=== PATIENT | female | born 1980 | race Caucasian/White ===

== ENCOUNTER 2016-06-17 18:16 | Emergency (ER) | payer OTHER ==
[~2016-06-17 18:16] MED LIST: CEPH-91
== END 2016-06-17 19:33 | disposition left against medical advice (07) ==
LOC: ER 18:16
DX: M54.2 Cervicalgia (principal); M54.5 Low back pain; M25.519 Pain in unspecified shoulder; Z53.21 Procedure and treatment not carried out due to patient leaving prior to being seen by health care provider

== ENCOUNTER → 2016-09-07 | Emergency (ER) | payer OTHER | END | disposition left against medical advice (07) | LOC: ER 01:55 | DX: S61.401A Unspecified open wound of right hand, initial encounter (principal); Z53.21 Procedure and treatment not carried out due to patient leaving prior to being seen by health care provider; X58.XXXA Exposure to other specified factors, initial encounter; Y93.89 Activity, other specified; Y92.89 Other specified places as the place of occurrence of the external cause; Y99.8 Other external cause status ==

== ENCOUNTER 2016-11-06 19:47 | Emergency (ER) | payer SELFPAY ==
[~2016-11-06] VITALS: Ht 162.6 cm; Wt 59.0 kg
[2016-11-06 20:26] LABS: Basophils # (auto) 0 uL; Basophils % (auto) 0.6 % (0.0-2.0); CONDITION Y; Eosinophils # (auto) 0.3 uL; Eosinophils % (auto) 4.2 % (0.0-7.0); Hematocrit 42.2 % (36.0-46.0); Hemoglobin 14.3 g/dL (12.2-16.2); Lymphocytes % (auto) 26.6 % (10.0-50.0); Mean Corpuscular Hemoglobin 31.4 pg (28.0-32.0); Mean Corpuscular Hgb Conc. 33.8 g/dL (32.0-36.0); Mean Corpuscular Volume 92.8 fL (80.0-100.0); Mean Platelet Volume 8.6 fL (7.4-10.4); Monocytes # (auto) 0.4 uL; Monocytes % (auto) 5.3 % (0.0-12.0); Neutrophils # (auto) 4.8 uL; Neutrophils % (auto) 63.3 % (37.0-80.0); Platelet Count (auto) 365 10^3/uL (140-450); White Blood Cell 7.5 10^3/uL (4.4-10.8)
[2016-11-06 20:40] LABS: INR 0.93 (0.9-1.15); Partial Thromboplastin Time 24.2 sec (22.64-33.71); Prothrombin Time 10.1 sec (9.37-12.3)
[2016-11-06 21:02] LABS: Albumin 3.4 g/dL (3.4-5.0); Alkaline Phosphatase 81 U/L (45-117); Anion Gap 9 (5-15); Aspartate Aminotransferase 52 U/L (15-37); BUN/Creatinine Ratio 22.4; Bilirubin, Total 0.2 mg/dL (0.2-1.0); Blood Urea Nitrogen 11 mg/dL (7-18); Carbon Dioxide 25 mmol/L (21-32); Chloride 107 mmol/L (98-107); GFR African American 183 mL/min; GFR Non-African American 151 mL/min; Glucose 140 mg/dL (74-106); Magnesium 2.1 mg/dL (1.6-2.6); Potassium 3.2 mmol/L (3.5-5.1); Sodium 141 mmol/L (136-145); Total Protein 7.1 g/dL (6.4-8.2)
[2016-11-07 00:17] VITALS: BP 131/89
== END 2016-11-07 00:45 | disposition left against medical advice (07) ==
LOC: EDBD 19:47 → ER 19:56
DX: R07.9 Chest pain, unspecified (principal); Z53.21 Procedure and treatment not carried out due to patient leaving prior to being seen by health care provider
CPT/HCPCS: 36415; 71010; 80053; 83735; 84484; 84702; 85025; 85610; 85730; 93005

== ENCOUNTER 2016-11-07 21:10 | Observation (INO) | payer SELFPAY ==
[~2016-11-07] VITALS: Ht 162.6 cm; Wt 68.0 kg
[2016-11-07] MEDS ORDERED: SODIUM CHLORIDE 0.9% 1,000 ML IV ONE (23:00)
[2016-11-07 23:17] LABS: Basophils # (auto) 0.2 uL; Basophils % (auto) 2.8 % (0.0-2.0); Eosinophils # (auto) 0.4 uL; Eosinophils % (auto) 5.6 % (0.0-7.0); Hemoglobin 14.3 g/dL (12.2-16.2); Lymphocytes # (auto) 3.5 uL; Lymphocytes % (auto) 43.5 % (10.0-50.0); Mean Corpuscular Hemoglobin 30.4 pg (28.0-32.0); Mean Corpuscular Hgb Conc. 32.6 g/dL (32.0-36.0); Mean Corpuscular Volume 93.1 fL (80.0-100.0); Mean Platelet Volume 8.9 fL (7.4-10.4); Monocytes # (auto) 0.7 uL; Monocytes % (auto) 8.2 % (0.0-12.0); Neutrophils # (auto) 3.2 uL; Neutrophils % (auto) 39.9 % (37.0-80.0); Platelet Count (auto) 362 10^3/uL (140-450); Red Cell Distribution Width 14.1 % (11.6-16.0)
[2016-11-07 23:22] LABS: Acetaminophen < 2.0 ug/mL (10-30); Albumin 3.4 g/dL (3.4-5.0); Anion Gap 9 (5-15); Aspartate Aminotransferase 43 U/L (15-37); BUN/Creatinine Ratio 28.1; Blood Urea Nitrogen 9 mg/dL (7-18); Calcium 7.4 mg/dL (8.5-10.1); Carbon Dioxide 24 mmol/L (21-32); Chloride 112 mmol/L (98-107); GFR African American 299 mL/min; GFR Non-African American 247 mL/min; Glucose 87 mg/dL (74-106); Potassium 3.6 mmol/L (3.5-5.1); Salicylate 2.8 mg/dL (2.8-20.0); Sodium 145 mmol/L (136-145)
[2016-11-07 23:31] LABS: Alkaline Phosphatase 80 U/L (45-117); Bilirubin, Total < 0.1 mg/dL (0.2-1.0); Total Protein 7.1 g/dL (6.4-8.2)
[2016-11-07 23:35] LABS: Urine Bilirubin Negative (Negative); Urine Blood 2+ /uL (Negative); Urine Color Yellow (Yellow); Urine Glucose Normal (Normal); Urine Ketone Negative (Negative); Urine Mucus FEW (None Seen); Urine Nitrite POSITIVE (Negative); Urine RBC 4 /hpf (0 - 4); Urine Squamous Epithelial Cell FEW /hpf (<5); Urine Urobilinogen Normal (Negative)
[2016-11-08] MEDS ORDERED: THIAMINE INJ 100 MG, MULTIPLE VITAMIN 10 ML, FOLIC ACID 1 MG, MAGNESIUM SULF SDV 50% 8 ... IV ONE ×5 (00:45)
[2016-11-08] MEDS ORDERED: cefTRIAXone SOD 1,000 MG VL IV ONE (01:00)
[2016-11-08] MEDS ORDERED: MVI in SODIUM CHLORIDE 0.9% 1,010 ML ONE (01:09)
[2016-11-08] MEDS ORDERED: THIAMINE HCL 100 MG/ML 2ML VIAL ONE (01:10)
[2016-11-08] MEDS ORDERED: cefTRIAXone 1GM/50ML D5W 50 ML IV ONE ×2 (01:11→01:30)
[2016-11-08 04:52] VITALS: BP 103/57
[2016-11-08] MEDS ORDERED: THIAMINE INJ 100 MG, MULTIPLE VITAMIN 10 ML, FOLIC ACID 1 MG, MAGNESIUM SULF SDV 50% 8 ... IV SCH ×10 (12:00)
== END 2016-11-08 06:12 | disposition home or self-care (01) | DRG 897 ==
LOC: ER 21:26 → OVERFLOW 21:27 → ER 11-08 06:12
PROVIDERS: ADMIT Family Medicine; ATTEND Family Medicine
DX: F10.129 Alcohol abuse with intoxication, unspecified (principal); R56.9 Unspecified convulsions; N39.0 Urinary tract infection, site not specified; F15.10 Other stimulant abuse, uncomplicated
CPT/HCPCS: 36415; 80053; 80307; 80320; 80329; 81001; 84484; 85025; 93005; 96361; 96365; 96366; 96367; 96368; 99285; G0378; J0696; J3411; J3475

== ENCOUNTER 2018-01-19 21:11 | Emergency (ER) | payer SELFPAY ==
[~2018-01-19] VITALS: Ht 162.6 cm; Wt 45.4 kg
[2018-01-19 21:28] VITALS: BP 160/109
== END 2018-01-19 22:31 | disposition left against medical advice (07) ==
LOC: ER 21:11
DX: O26.891 Other specified pregnancy related conditions, first trimester (principal); Z3A.00 Weeks of gestation of pregnancy not specified

== ENCOUNTER 2018-04-01 13:58 | Emergency (ER) | payer SELFPAY ==
[~2018-04-01] VITALS: Ht 162.6 cm; Wt 54.4 kg
[2018-04-01 15:11] VITALS: BP 118/68
[2018-04-01] MEDS ORDERED: SODIUM CHLORIDE 0.9% 1,000 ML IV ONE ×2 (15:32)
[2018-04-01 15:45] LABS: Basophils # (auto) 0.1 uL; Basophils % (auto) 0.5 % (0.0-2.0); Eosinophils # (auto) 0.1 uL; Eosinophils % (auto) 0.6 % (0.0-7.0); Hematocrit 36.2 % (36.0-46.0); Hemoglobin 11.8 g/dL (12.2-16.2); Lymphocytes # (auto) 1.4 uL; Lymphocytes % (auto) 11.6 % (10.0-50.0); Mean Corpuscular Hgb Conc. 32.5 g/dL (32.0-36.0); Mean Corpuscular Volume 95.3 fL (80.0-100.0); Monocytes # (auto) 0.4 uL; Monocytes % (auto) 3.4 % (0.0-12.0); Neutrophils % (auto) 83.9 % (37.0-80.0); Platelet Count (auto) 304 10^3/uL (140-450); Red Cell Distribution Width 13.9 % (11.8-14.3); White Blood Cell 11.9 10^3/uL (4.4-10.8)
[2018-04-01] MEDS ORDERED: FOLIC ACID 1 MG TAB PO ONE (15:45)
[2018-04-01 16:04] LABS: BUN/Creatinine Ratio 33.3; Calcium 7.5 mg/dL (8.5-10.1); Potassium 3.6 mmol/L (3.5-5.1)
[2018-04-01 16:05] LABS: Bilirubin, Total 0.1 mg/dL (0.2-1.0); Total Protein 6.8 g/dL (6.4-8.2)
== END 2018-04-01 17:34 | disposition home or self-care (01) ==
LOC: EDBD 13:58 → ER 14:03
DX: O26.891 Other specified pregnancy related conditions, first trimester (principal); E86.0 Dehydration; M79.632 Pain in left forearm; Z3A.01 Less than 8 weeks gestation of pregnancy; W51.XXXA Accidental striking against or bumped into by another person, initial encounter; Y93.89 Activity, other specified; Y92.89 Other specified places as the place of occurrence of the external cause; Y99.8 Other external cause status
CPT/HCPCS: 29125; 36415; 80053; 80320; 84702; 85025; 96360; 99283; J7030

== ENCOUNTER 2019-08-14 12:21 | Emergency (ER) | payer MEDICAID, OTHER ==
[~2019-08-14] VITALS: Ht 162.6 cm; Wt 54.4 kg
[2019-08-14 13:14] LABS: Basophils # (auto) 0.1 10 ^3/uL (0-0.2); Eosinophils # (auto) 0.3 10 ^3/uL (0-0.8); Eosinophils % (auto) 5.4 % (0.0-7.0); Hematocrit 37.6 % (36.0-46.0); Hemoglobin 12.3 g/dL (12.2-16.2); Lymphocytes # (auto) 1.4 10 ^3/uL (0.4-5.4); Lymphocytes % (auto) 21.6 % (10.0-50.0); Mean Corpuscular Hgb Conc. 32.7 g/dL (32.0-36.0); Mean Corpuscular Volume 91.6 fL (80.0-100.0); Monocytes # (auto) 0.5 10 ^3/uL (0-1.3); Monocytes % (auto) 8.2 % (0.0-12.0); Neutrophils # (auto) 4.1 10 ^3/uL (1.6-8.6); Neutrophils % (auto) 63.8 % (37.0-80.0); Platelet Count (auto) 377 10^3/uL (140-450); Red Cell Distribution Width 19.8 % (11.8-14.3); White Blood Cell 6.4 10^3/uL (4.4-10.8)
[2019-08-14 13:33] LABS: Albumin 3.3 g/dL (3.4-5.0); Anion Gap 6 (5-15); Blood Urea Nitrogen 14 mg/dL (7-18); Calcium 8.5 mg/dL (8.5-10.1); Carbon Dioxide 26 mmol/L (21-32); Chloride 107 mmol/L (98-107); Glucose 96 mg/dL (74-106); Potassium 3.5 mmol/L (3.5-5.1); Sodium 139 mmol/L (136-145)
[2019-08-14] MEDS ORDERED: SODIUM CHLORIDE 0.9% 1,000 ML IVB ONE (13:36)
[2019-08-14 13:40] LABS: Alanine Aminotransferase 43 U/L (13-56); Alkaline Phosphatase 97 U/L (45-117); Aspartate Aminotransferase 61 U/L (15-37); BUN/Creatinine Ratio 31.1; Bilirubin, Total 0.5 mg/dL (0.2-1.0); GFR African American 198 mL/min; GFR Non-African American 164 mL/min; Total Protein 7.1 g/dL (6.4-8.2)
[2019-08-14 14:47] LABS: Blood Alcohol < 3.0 mg/dL (0-5); Magnesium 1.8 mg/dL (1.6-2.6)
[2019-08-14 15:43] LABS: Amphetamine Screen, Urine POSITIVE (NEGATIVE); Barbiturate Scree,Urine NEGATIVE (NEGATIVE); Benzodiazephine Screen, Urine NEGATIVE (NEGATIVE); Cannabinoid Screen, Urine POSITIVE (NEGATIVE); Cocaine Screen, Urine NEGATIVE (NEGATIVE); Opiate Scree,Urine NEGATIVE (NEGATIVE)
[2019-08-14 15:51] LABS: Phencyclidine Screen, Urine NEGATIVE (NEGATIVE)
[2019-08-14 16:04] LABS: Urine Bacteria MANY /hpf (None Seen); Urine Blood Negative /uL (Negative); Urine Mucus FEW (None Seen); Urine Specific Gravity 1.023 (1.001-1.035); Urine WBC 5 /hpf (0 - 5)
[2019-08-14] MEDS ORDERED: cefTRIAXone 1GM/50ML D5W 50 ML IV ONE (16:45)
[2019-08-14] MEDS ORDERED: THIAMINE HCL 100 MG TAB PO ONE (16:45)
[2019-08-14 17:00] VITALS: BP 143/95
== END 2019-08-14 17:41 | disposition home or self-care (01) ==
LOC: ER 12:21 → EDBD 12:21 → ER 17:41
DX: R56.9 Unspecified convulsions (principal); F15.10 Other stimulant abuse, uncomplicated; N39.0 Urinary tract infection, site not specified; F10.20 Alcohol dependence, uncomplicated; F17.210 Nicotine dependence, cigarettes, uncomplicated; F12.10 Cannabis abuse, uncomplicated; Z59.0 Homelessness; Y90.9 Presence of alcohol in blood, level not specified
CPT/HCPCS: 36415; 70450; 71045; 80053; 80307; 80320; 81001; 83735; 84484; 84702; 85025; 96365; 99285; J0696

== ENCOUNTER 2020-03-14 03:12 | Emergency (ER) | payer SELFPAY ==
[~2020-03-14] VITALS: Ht 165.1 cm; Wt 63.5 kg
[2020-03-14] MEDS ORDERED: LORazepam 2MG/ML-1ML VIAL IV ONE (03:15)
[2020-03-14] MEDS ORDERED: SODIUM CHLORIDE 0.9% 2,000 ML IV ONE (03:15)
[2020-03-14 03:52] LABS: Basophils # (auto) 0 10 ^3/uL (0-0.2); Basophils % (auto) 0.7 % (0.0-2.0); Eosinophils # (auto) 0.1 10 ^3/uL (0-0.8); Eosinophils % (auto) 1.7 % (0.0-7.0); Hematocrit 38.9 % (36.0-46.0); Hemoglobin 12.9 g/dL (12.2-16.2); Lymphocytes # (auto) 2.7 10 ^3/uL (0.4-5.4); Lymphocytes % (auto) 38.7 % (10.0-50.0); Mean Corpuscular Hemoglobin 32.1 pg (28.0-32.0); Mean Corpuscular Hgb Conc. 33.2 g/dL (32.0-36.0); Mean Corpuscular Volume 96.9 fL (80.0-100.0); Monocytes % (auto) 14.4 % (0.0-12.0); Neutrophils # (auto) 3.1 10 ^3/uL (1.6-8.6); Neutrophils % (auto) 44.5 % (37.0-80.0); Nucleated Red Blood Cells % 0.1 %; Platelet Count (auto) 220 10^3/uL (140-450); Red Blood Cells 4.02 10^6/uL (4.0-5.20); Red Cell Distribution Width 16.3 % (11.8-14.3); White Blood Cell 6.9 10^3/uL (4.4-10.8)
[2020-03-14] MEDS ORDERED: SODIUM CHLORIDE 0.9% 1,000 ML IV ONE (04:00)
[2020-03-14 04:15] LABS: Lactic Acid w/Reflex 4.8 mmol/L (0.4-2.0)
[2020-03-14 04:17] LABS: Chloride 96 mmol/L (98-107); Sodium 131 mmol/L (136-145)
[2020-03-14 04:20] LABS: INR 0.97 (0.9-1.15); Partial Thromboplastin Time 26.9 sec (23.0-31.2)
[2020-03-14 04:24] LABS: Potassium 2.5 mmol/L (3.5-5.1)
[2020-03-14 04:27] LABS: Alanine Aminotransferase 126 U/L (13-56); Albumin 3.1 g/dL (3.4-5.0); Alkaline Phosphatase 120 U/L (45-117); Anion Gap 13 (5-15); Aspartate Aminotransferase 179 U/L (15-37); BUN/Creatinine Ratio 28.6; Bilirubin, Total 0.5 mg/dL (0.2-1.0); Blood Urea Nitrogen 24 mg/dL (7-18); Calcium 8.1 mg/dL (8.5-10.1); Carbon Dioxide 22 mmol/L (21-32); GFR African American 96 mL/min; GFR Non-African American 79 mL/min; Glucose 103 mg/dL (74-106); Magnesium 1.2 mg/dL (1.6-2.6); Total Protein 6.8 g/dL (6.4-8.2)
[2020-03-14 09:45] VITALS: BP 119/76
== END 2020-03-14 10:37 | disposition home or self-care (01) ==
LOC: EDUNIT# 03:12 → ER 03:12 → EDBD 03:12 → ER 10:37
DX: F15.121 Other stimulant abuse with intoxication delirium (principal)
CPT/HCPCS: 36415; 70450; 71045; 80053; 80320; 83605; 83735; 84484; 85025; 85379; 85610; 85730; 87040; 96361; 96374; 99285; J2060; J7030

== ENCOUNTER 2020-06-23 23:00 | Emergency (ER) | payer SELFPAY ==
[~2020-06-23] VITALS: Ht 157.5 cm; Wt 59.0 kg
[2020-06-23 23:11] VITALS: BP 132/74
== END 2020-06-23 23:19 | disposition left against medical advice (07) ==
LOC: EDUNIT# 23:00 → EDBD 23:00 → ER 23:04
DX: R07.89 Other chest pain (principal); Z53.21 Procedure and treatment not carried out due to patient leaving prior to being seen by health care provider
CPT/HCPCS: 93005

== ENCOUNTER 2020-12-02 04:19 | Emergency (ER) | payer MEDICAID, OTHER ==
[~2020-12-02] VITALS: Ht 162.6 cm; Wt 56.7 kg
[2020-12-02 05:17] LABS: Basophils # (auto) 0.1 10 ^3/uL (0-0.2); Eosinophils # (auto) 0.2 10 ^3/uL (0-0.8); Hemoglobin 14.8 g/dL (12.2-16.2); Monocytes # (auto) 0.6 10 ^3/uL (0-1.3); Neutrophils # (auto) 5.3 10 ^3/uL (1.6-8.6); Nucleated Red Blood Cells % 0.1 %
[2020-12-02 05:19] LABS: Basophils % (auto) 1.3 % (0.0-2.0); Hematocrit 43.7 % (36.0-46.0); Lymphocytes % (auto) 24.5 % (10.0-50.0); Mean Corpuscular Hemoglobin 34.5 pg (28.0-32.0); Mean Corpuscular Hgb Conc. 33.8 g/dL (32.0-36.0); Mean Corpuscular Volume 102.2 fL (80.0-100.0); Monocytes % (auto) 7.1 % (0.0-12.0); Neutrophils % (auto) 65.1 % (37.0-80.0); Red Blood Cells 4.28 10^6/uL (4.0-5.20); Red Cell Distribution Width 15.5 % (11.8-14.3); White Blood Cell 8.2 10^3/uL (4.4-10.8)
[2020-12-02 05:40] LABS: Alanine Aminotransferase 81 U/L (13-56); Albumin 3.6 g/dL (3.4-5.0); Anion Gap 9 (5-15); Aspartate Aminotransferase 147 U/L (15-37); BUN/Creatinine Ratio 17.7; Blood Urea Nitrogen 11 mg/dL (7-18); Calcium 8.9 mg/dL (8.5-10.1); Carbon Dioxide 27 mmol/L (21-32); Chloride 103 mmol/L (98-107); GFR African American 136 mL/min; GFR Non-African American 113 mL/min; Glucose 90 mg/dL (74-106); Potassium 3.3 mmol/L (3.5-5.1); Sodium 139 mmol/L (136-145)
[2020-12-02 05:44] LABS: Alkaline Phosphatase 136 U/L (45-117); Bilirubin, Total 0.3 mg/dL (0.2-1.0); Total Protein 7.6 g/dL (6.4-8.2)
[2020-12-02] MEDS ORDERED: cloNIDine HCL 0.1 MG TAB PO ONE (06:45)
[2020-12-02] MEDS ORDERED: POTASSIUM EFFERVESENT TAB 25 MEQ PO ONE (06:45)
[2020-12-02 10:17] VITALS: BP 128/81
== END 2020-12-02 10:18 | disposition home or self-care (01) ==
LOC: ER 04:19
DX: I16.0 Hypertensive urgency (principal); R07.89 Other chest pain; E87.6 Hypokalemia; I11.0 Hypertensive heart disease with heart failure; I50.9 Heart failure, unspecified; F17.210 Nicotine dependence, cigarettes, uncomplicated; Z59.0 Homelessness; Z79.899 Other long term (current) drug therapy
CPT/HCPCS: 36415; 71045; 80053; 83880; 84484; 85025; 93005

== ENCOUNTER 2021-02-14 08:16 | Emergency (ER) | payer MEDICAID, OTHER ==
[~2021-02-14] VITALS: Ht 162.6 cm; Wt 54.4 kg
[2021-02-14] MEDS ORDERED: SODIUM CHLORIDE 0.9% 1,000 ML IV ONE ×2 (09:15)
[2021-02-14] MEDS ORDERED: ONDANSETRON HCL 4 MG/2 ML VIAL IV ONE (09:15)
[2021-02-14 09:44] LABS: Urine Bacteria NONE SEEN /hpf (None Seen); Urine Blood Negative /uL (Negative); Urine Mucus FEW (None Seen); Urine Specific Gravity 1.025 (1.001-1.035); Urine WBC 85 /hpf (0 - 5)
[2021-02-14 09:53] LABS: Amphetamine Screen, Urine POSITIVE (NEGATIVE); Barbiturate Scree,Urine NEGATIVE (NEGATIVE); Benzodiazephine Screen, Urine NEGATIVE (NEGATIVE); Cannabinoid Screen, Urine POSITIVE (NEGATIVE); Cocaine Screen, Urine NEGATIVE (NEGATIVE); Phencyclidine Screen, Urine NEGATIVE (NEGATIVE)
[2021-02-14 09:59] LABS: Opiate Scree,Urine NEGATIVE (NEGATIVE)
[2021-02-14 10:30] LABS: Basophils # (auto) 0 10 ^3/uL (0-0.2); Basophils % (auto) 0.4 % (0.0-2.0); Eosinophils # (auto) 0.1 10 ^3/uL (0-0.8); Eosinophils % (auto) 1.4 % (0.0-7.0); Nucleated Red Blood Cells % 0.1 %; Red Cell Distribution Width 16.4 % (11.8-14.3)
[2021-02-14 10:36] LABS: Hematocrit 41.9 % (36.0-46.0); Hemoglobin 13.8 g/dL (12.2-16.2); Lymphocytes # (auto) 1.1 10 ^3/uL (0.4-5.4); Lymphocytes % (auto) 11.7 % (10.0-50.0); Mean Corpuscular Hemoglobin 35.3 pg (28.0-32.0); Mean Corpuscular Volume 106.9 fL (80.0-100.0); Monocytes # (auto) 0.6 10 ^3/uL (0-1.3); Neutrophils # (auto) 7.5 10 ^3/uL (1.6-8.6); Neutrophils % (auto) 80.5 % (37.0-80.0); Red Blood Cells 3.92 10^6/uL (4.0-5.20); White Blood Cell 9.3 10^3/uL (4.4-10.8)
[2021-02-14 10:50] LABS: Albumin 3.2 g/dL (3.4-5.0); BUN/Creatinine Ratio 22.2; Calcium 7.7 mg/dL (8.5-10.1); Potassium 3.2 mmol/L (3.5-5.1)
[2021-02-14 10:53] LABS: Bilirubin, Total 0.3 mg/dL (0.2-1.0); Total Protein 6.8 g/dL (6.4-8.2)
[2021-02-14 12:55] VITALS: BP 145/97
== END 2021-02-14 13:11 | disposition home or self-care (01) ==
LOC: ER 08:16
DX: R10.84 Generalized abdominal pain (principal); R11.2 Nausea with vomiting, unspecified; F10.129 Alcohol abuse with intoxication, unspecified; I11.0 Hypertensive heart disease with heart failure; I50.9 Heart failure, unspecified; F17.210 Nicotine dependence, cigarettes, uncomplicated; F12.10 Cannabis abuse, uncomplicated; F15.10 Other stimulant abuse, uncomplicated
CPT/HCPCS: 36415; 74176; 80053; 80307; 80320; 81001; 84484; 85025; 93005; 96361; 96374; 99285; J2405; J7030

== ENCOUNTER 2021-10-18 20:26 | Emergency (ER) | payer SELFPAY ==
[~2021-10-18] VITALS: Ht 165.1 cm; Wt 52.3 kg
[2021-10-18] MEDS ORDERED: IOHEXOL 350 MG/ML 100ML IJ ONE (21:10)
[2021-10-19 04:32] LABS: Basophils # (auto) 0.1 10 ^3/uL (0-0.2); Eosinophils # (auto) 0.2 10 ^3/uL (0-0.8); Eosinophils % (auto) 2.4 % (0.0-7.0); Hematocrit 45.9 % (36.0-46.0); Hemoglobin 14.8 g/dL (12.2-16.2); Lymphocytes # (auto) 3.7 10 ^3/uL (0.4-5.4); Lymphocytes % (auto) 41.7 % (10.0-50.0); Mean Corpuscular Hemoglobin 31.8 pg (28.0-32.0); Mean Corpuscular Hgb Conc. 32.2 g/dL (32.0-36.0); Mean Corpuscular Volume 98.8 fL (80.0-100.0); Monocytes # (auto) 0.6 10 ^3/uL (0-1.3); Monocytes % (auto) 6.9 % (0.0-12.0); Neutrophils # (auto) 4.3 10 ^3/uL (1.6-8.6); Nucleated Red Blood Cells % 0.1 %; Red Blood Cells 4.65 10^6/uL (4.0-5.20); Red Cell Distribution Width 15.4 % (11.8-14.3)
[2021-10-19 04:46] LABS: INR 0.97 (0.9-1.15); Partial Thromboplastin Time 28.4 sec (24.6-33.4)
[2021-10-19 04:50] LABS: Albumin 3.5 g/dL (3.4-5.0); Potassium 3.2 mmol/L (3.5-5.1)
[2021-10-19 04:59] LABS: Bilirubin, Total 0.1 mg/dL (0.2-1.0); Total Protein 7.6 g/dL (6.4-8.2)
[2021-10-19] MEDS ORDERED: CALCIUM ACETATE 667 MG CAP PO ONE ×2 (05:30→08:45)
[2021-10-19] MEDS ORDERED: POTASSIUM EFFERVESENT TAB 25 MEQ PO ONE ×2 (05:30→08:45)
[2021-10-19 07:09] LABS: Amphetamine Screen, Urine POSITIVE (NEGATIVE); Barbiturate Scree,Urine NEGATIVE (NEGATIVE); Benzodiazephine Screen, Urine NEGATIVE (NEGATIVE); Cannabinoid Screen, Urine POSITIVE (NEGATIVE); Cocaine Screen, Urine NEGATIVE (NEGATIVE); Opiate Scree,Urine NEGATIVE (NEGATIVE); Phencyclidine Screen, Urine NEGATIVE (NEGATIVE)
[2021-10-19 07:13] LABS: Urine Bacteria NONE SEEN /hpf (None Seen); Urine Blood Negative /uL (Negative); Urine Mucus FEW (None Seen); Urine WBC 60 /hpf (0 - 5)
[2021-10-19 07:53] LABS: Urine Specific Gravity > 1.050 (1.001-1.035)
[2021-10-19] MEDS ORDERED: PRED20TA2 PO (08:26)
[2021-10-19] MEDS ORDERED: PANT40TA2 PO (08:26)
[2021-10-19 10:02] VITALS: BP 109/74
== END 2021-10-19 10:34 | disposition home or self-care (01) ==
LOC: ER 20:26
DX: G51.0 Bell's palsy (principal); E87.6 Hypokalemia; F17.210 Nicotine dependence, cigarettes, uncomplicated; R10.2 Pelvic and perineal pain; F12.10 Cannabis abuse, uncomplicated; F15.10 Other stimulant abuse, uncomplicated; I11.0 Hypertensive heart disease with heart failure; I50.9 Heart failure, unspecified; Z59.00 Homelessness unspecified
CPT/HCPCS: 36415; 70450; 70496; 70498; 71045; 80053; 80307; 81001; 83735; 83880; 84702; 85025; 85610; 85730; 86850; 86900; 86901; 93005; 99285; Q9967

== ENCOUNTER 2021-11-05 23:31 | Emergency (ER) | payer SELFPAY ==
[~2021-11-05] VITALS: Ht 162.6 cm; Wt 115.0 kg
[2021-11-05 23:31] VITALS: BP 140/96
[~2021-11-05 23:31] MED LIST changes: +PANT40TA2 PO; +PRED20TA2 PO
== END 2021-11-06 04:29 | disposition left against medical advice (07) ==
LOC: ER 23:31
DX: G51.0 Bell's palsy (principal); Z76.0 Encounter for issue of repeat prescription; Z53.21 Procedure and treatment not carried out due to patient leaving prior to being seen by health care provider

== ENCOUNTER 2021-11-14 18:20 | Emergency (ER) | payer SELFPAY ==
[~2021-11-14] VITALS: Ht 162.6 cm; Wt 52.0 kg
[2021-11-14 18:29] VITALS: BP 138/88
== END 2021-11-14 21:28 | disposition left against medical advice (07) ==
LOC: ER 18:22
DX: Z76.0 Encounter for issue of repeat prescription (principal); Z53.21 Procedure and treatment not carried out due to patient leaving prior to being seen by health care provider

== ENCOUNTER 2021-11-15 18:42 | Emergency (ER) | payer SELFPAY ==
[~2021-11-15] VITALS: Ht 162.6 cm; Wt 47.0 kg
[2021-11-15 19:08] VITALS: BP 137/90
== END 2021-11-16 04:00 | disposition left against medical advice (07) ==
LOC: ER 18:45
DX: R20.0 Anesthesia of skin (principal); R53.1 Weakness; Z53.21 Procedure and treatment not carried out due to patient leaving prior to being seen by health care provider
CPT/HCPCS: 70450; 93005

== ENCOUNTER 2021-11-16 05:58 | Emergency (ER) | payer SELFPAY ==
[~2021-11-16] VITALS: Ht 165.1 cm; Wt 53.5 kg
[2021-11-16] MEDS ORDERED: ASPirin 325 MG TAB PO ONE (07:45)
[2021-11-16 15:51] VITALS: BP 118/93
== END 2021-11-16 15:51 | disposition home or self-care (01) ==
LOC: ER 05:58
DX: I11.0 Hypertensive heart disease with heart failure (principal); I50.9 Heart failure, unspecified; F41.9 Anxiety disorder, unspecified; F17.210 Nicotine dependence, cigarettes, uncomplicated; F12.10 Cannabis abuse, uncomplicated; F15.10 Other stimulant abuse, uncomplicated; Z59.00 Homelessness unspecified
CPT/HCPCS: 70450

== ENCOUNTER 2021-11-28 21:35 | Emergency (ER) | payer SELFPAY ==
[~2021-11-28] VITALS: Ht 152.4 cm; Wt 55.0 kg
[2021-11-28 21:35] VITALS: BP 149/100
== END 2021-11-28 23:08 | disposition left against medical advice (07) ==
LOC: EDBD 21:35 → ER 21:35
DX: R51.9 Headache, unspecified (principal); F10.10 Alcohol abuse, uncomplicated; Z53.21 Procedure and treatment not carried out due to patient leaving prior to being seen by health care provider

== ENCOUNTER 2022-11-11 09:30 | Emergency (ER) | payer MEDICAID ==
[~2022-11-11] VITALS: Ht 162.6 cm; Wt 50.9 kg
[2022-11-11 09:34] VITALS: BP 126/92; RESP 18; O2SAT 97
[2022-11-11 09:40] VITALS: PULSE 109
[2022-11-11 09:59] LABS: Basophils # (auto) 0.1 10 ^3/uL (0-0.2); Basophils % (auto) 1.3 % (0.0-2.0); Eosinophils # (auto) 0.4 10 ^3/uL (0-0.8); Eosinophils % (auto) 4.7 % (0.0-7.0); Hemoglobin 13.6 g/dL (12.2-16.2); Lymphocytes # (auto) 3.1 10 ^3/uL (0.4-5.4); Lymphocytes % (auto) 38.3 % (10.0-50.0); Mean Corpuscular Hemoglobin 31.4 pg (28.0-32.0); Mean Corpuscular Hgb Conc. 33.1 g/dL (32.0-36.0); Mean Corpuscular Volume 94.6 fL (80.0-100.0); Monocytes # (auto) 0.6 10 ^3/uL (0-1.3); Monocytes % (auto) 7.3 % (0.0-12.0); Neutrophils # (auto) 3.9 10 ^3/uL (1.6-8.6); Neutrophils % (auto) 48.4 % (37.0-80.0); Red Blood Cells 4.33 10^6/uL (4.0-5.20); Red Cell Distribution Width 16.1 % (11.8-14.3); White Blood Cell 8.1 10^3/uL (4.4-10.8)
[2022-11-11 10:12] LABS: Alanine Aminotransferase 36 U/L (7-40); Albumin 4.6 g/dL (3.2-4.8); Alkaline Phosphatase 127 U/L (46-116); Anion Gap 9.2 (5-15); Aspartate Aminotransferase 70 U/L (13-40); BUN/Creatinine Ratio 26.9 (10.0-20.0); Blood Urea Nitrogen 14 mg/dL (9-23); Carbon Dioxide 23.8 mmol/L (20-30); Chloride 106 mmol/L (98-107); Glucose 85 mg/dL (74-106); Magnesium 1.5 mg/dL (1.6-2.6); Potassium 3.7 mmol/L (3.5-5.1); Sodium 139 mmol/L (136-145)
[2022-11-11 10:13] LABS: Bilirubin, Total 0.5 mg/dL (0.2-1.0); Total Protein 7.6 g/dL (5.7-8.2)
[2022-11-11 10:49] LABS: Urine Bacteria FEW /hpf (None Seen); Urine Blood Negative /uL (Negative); Urine Clarity HAZY (Clear); Urine Color Yellow (Yellow); Urine Mucus FEW (None Seen); Urine Protein, UAD 1+ (Negative); Urine Specific Gravity 1.027 (1.001-1.035); Urine Urobilinogen Normal (Negative); Urine WBC 7 /hpf (0 - 5)
[2022-11-11 10:53] LABS: INR 1.02 (0.9-1.15); Prothrombin Time 10.7 sec (9.3-11.8)
[2022-11-11 10:54] LABS: Amphetamine Screen, Urine Pos (NEGATIVE); Barbiturate Scree,Urine Neg (NEGATIVE); Benzodiazephine Screen, Urine Neg (NEGATIVE); Cannabinoid Screen, Urine Pos (NEGATIVE); Cocaine Screen, Urine Neg (NEGATIVE); Opiate Scree,Urine Neg (NEGATIVE); Phencyclidine Screen, Urine Neg (NEGATIVE)
== END 2022-11-11 10:53 | disposition left against medical advice (07) ==
LOC: ER 09:30
DX: R07.89 Other chest pain (principal); N39.0 Urinary tract infection, site not specified; F15.10 Other stimulant abuse, uncomplicated; R06.02 Shortness of breath; Z32.02 Encounter for pregnancy test, result negative; Z79.899 Other long term (current) drug therapy
CPT/HCPCS: 36415; 80053; 80307; 81001; 81025; 83735; 83880; 84484; 85025; 85610; 85730; 93005

== ENCOUNTER 2022-12-08 16:27 | Emergency (ER) | payer MEDICAID ==
[~2022-12-08] VITALS: Ht 162.6 cm; Wt 51.4 kg
[2022-12-08] MEDS ORDERED: KETOROLAC TROMETH 60MG/2ML VIAL IM ONE (17:15)
[2022-12-08 17:48] LABS: Basophils # (auto) 0.1 10 ^3/uL (0-0.2); Basophils % (auto) 0.8 % (0.0-2.0); Eosinophils # (auto) 0.4 10 ^3/uL (0-0.8); Eosinophils % (auto) 2.9 % (0.0-7.0); Hematocrit 36.9 % (36.0-46.0); Hemoglobin 12.4 g/dL (12.2-16.2); Lymphocytes % (auto) 16.5 % (10.0-50.0); Mean Corpuscular Hgb Conc. 33.5 g/dL (32.0-36.0); Mean Corpuscular Volume 95.5 fL (80.0-100.0); Monocytes # (auto) 1.2 10 ^3/uL (0-1.3); Monocytes % (auto) 10.1 % (0.0-12.0); Neutrophils # (auto) 8.4 10 ^3/uL (1.6-8.6); Neutrophils % (auto) 69.7 % (37.0-80.0); Red Blood Cells 3.87 10^6/uL (4.0-5.20); Red Cell Distribution Width 16.7 % (11.8-14.3)
[2022-12-08 17:51] VITALS: BP 109/79; PULSE 100; RESP 16; TEMP 98; O2SAT 95
[2022-12-08 18:13] LABS: Alanine Aminotransferase 17 U/L (7-40); Albumin 4.5 g/dL (3.2-4.8); Alkaline Phosphatase 119 U/L (46-116); Anion Gap 6 (5-15); Aspartate Aminotransferase 28 U/L (13-40); Bilirubin, Total < 0.2 mg/dL (0.2-1.0); Blood Urea Nitrogen 6 mg/dL (9-23); Calcium 8.9 mg/dL (8.7-10.4); Carbon Dioxide 30 mmol/L (20-30); Chloride 99 mmol/L (98-107); Glucose 88 mg/dL (74-106); Lipase 39 U/L (12-53); Potassium 3.2 mmol/L (3.5-5.1); Sodium 135 mmol/L (136-145); Total Protein 7.4 g/dL (5.7-8.2)
[2022-12-08 18:18] LABS: Amphetamine Screen, Urine Pos (NEGATIVE); Barbiturate Scree,Urine Neg (NEGATIVE); Benzodiazephine Screen, Urine Neg (NEGATIVE); Cannabinoid Screen, Urine Pos (NEGATIVE); Cocaine Screen, Urine Neg (NEGATIVE); Opiate Scree,Urine Neg (NEGATIVE); Phencyclidine Screen, Urine Neg (NEGATIVE)
[2022-12-08 18:42] LABS: Urine Bacteria NONE SEEN /hpf (None Seen); Urine Blood TRACE /uL (Negative); Urine Clarity CLOUDY (Clear); Urine Color Yellow (Yellow); Urine Mucus FEW (None Seen); Urine Protein, UAD 2+ (Negative); Urine WBC 284 /hpf (0 - 5); Urine WBC Clumps PRESENT /hpf (None Seen)
[2022-12-08] MEDS ORDERED: LEVO750T8 PO (20:12)
[2022-12-08] MEDS ORDERED: IBUP-1454 PO (20:12)
[2022-12-08] MEDS ORDERED: levoFLOXacin 250 MG TAB PO ONE (20:15)
[2022-12-08] MEDS ORDERED: cefTRIAXone SOD 1,000 MG VL IM ONE (20:15)
== END 2022-12-08 20:25 | disposition home or self-care (01) ==
LOC: ER 16:27
DX: N12 Tubulo-interstitial nephritis, not specified as acute or chronic (principal); I11.0 Hypertensive heart disease with heart failure; I50.9 Heart failure, unspecified; F17.210 Nicotine dependence, cigarettes, uncomplicated; Z59.00 Homelessness unspecified; Z79.899 Other long term (current) drug therapy
CPT/HCPCS: 36415; 80053; 80307; 81001; 81025; 83690; 83880; 84484; 85025; 93005; 96372; 99284; J0696; J1885

== ENCOUNTER 2022-12-10 10:58 | Emergency (ER) | payer MEDICAID ==
[~2022-12-10] VITALS: Ht 162.6 cm; Wt 51.0 kg
[~2022-12-10 10:58] MED LIST changes: +IBUP-1454 PO; +LEVO750T8 PO
[2022-12-10 11:19] VITALS: BP 129/92; PULSE 103; RESP 18; O2SAT 95
[2022-12-10 11:27] LABS: Basophils # (auto) 0.1 10 ^3/uL (0-0.2); Eosinophils # (auto) 0.4 10 ^3/uL (0-0.8); Hemoglobin 12.3 g/dL (12.2-16.2); Mean Corpuscular Hgb Conc. 33.9 g/dL (32.0-36.0); Monocytes # (auto) 0.6 10 ^3/uL (0-1.3); White Blood Cell 7.8 10^3/uL (4.4-10.8)
[2022-12-10 11:29] LABS: Basophils % (auto) 1.1 % (0.0-2.0); Eosinophils % (auto) 4.5 % (0.0-7.0); Hematocrit 36.3 % (36.0-46.0); Lymphocytes # (auto) 2.5 10 ^3/uL (0.4-5.4); Lymphocytes % (auto) 31.9 % (10.0-50.0); Mean Corpuscular Hemoglobin 32.4 pg (28.0-32.0); Mean Corpuscular Volume 95.5 fL (80.0-100.0); Monocytes % (auto) 8.2 % (0.0-12.0); Neutrophils # (auto) 4.2 10 ^3/uL (1.6-8.6); Neutrophils % (auto) 54.3 % (37.0-80.0); Red Cell Distribution Width 16.9 % (11.8-14.3)
[2022-12-10 11:46] LABS: Alanine Aminotransferase 22 U/L (7-40); Albumin 3.9 g/dL (3.2-4.8); Alkaline Phosphatase 124 U/L (46-116); Anion Gap 4 (5-15); Aspartate Aminotransferase 32 U/L (13-40); Bilirubin, Total < 0.2 mg/dL (0.2-1.0); Blood Urea Nitrogen 8 mg/dL (9-23); Calcium 8.6 mg/dL (8.7-10.4); Carbon Dioxide 30 mmol/L (20-30); Chloride 105 mmol/L (98-107); Glucose 89 mg/dL (74-106); Potassium 3.6 mmol/L (3.5-5.1); Sodium 139 mmol/L (136-145)
[2022-12-10 12:34] LABS: Urine Bacteria FEW /hpf (None Seen); Urine Blood Negative /uL (Negative); Urine Clarity HAZY (Clear); Urine Color Yellow (Yellow); Urine Mucus FEW (None Seen); Urine Protein, UAD 1+ (Negative); Urine Specific Gravity 1.016 (1.001-1.035); Urine Urobilinogen Normal (Negative); Urine WBC 12 /hpf (0 - 5)
[2022-12-10 12:47] LABS: Amphetamine Screen, Urine Pos (NEGATIVE); Barbiturate Scree,Urine Neg (NEGATIVE); Benzodiazephine Screen, Urine Neg (NEGATIVE); Cannabinoid Screen, Urine Pos (NEGATIVE); Cocaine Screen, Urine Neg (NEGATIVE); Opiate Scree,Urine Neg (NEGATIVE); Phencyclidine Screen, Urine Neg (NEGATIVE)
[2022-12-10] MEDS ORDERED: cefTRIAXone W LIDOCAINE 1 GM IM IM ONE (13:15)
== END 2022-12-10 12:53 | disposition left against medical advice (07) ==
LOC: ER 10:58
DX: N39.0 Urinary tract infection, site not specified (principal); I11.0 Hypertensive heart disease with heart failure; I50.89 Other heart failure; F17.210 Nicotine dependence, cigarettes, uncomplicated; F10.90 Alcohol use, unspecified, uncomplicated; F12.90 Cannabis use, unspecified, uncomplicated; F15.90 Other stimulant use, unspecified, uncomplicated; Z59.00 Homelessness unspecified; Z79.899 Other long term (current) drug therapy; Z86.73 Personal history of transient ischemic attack (TIA), and cerebral infarction without residual deficits
CPT/HCPCS: 36415; 80053; 80307; 81001; 84484; 85025; 93005; 99284; J0696

== ENCOUNTER 2023-08-09 01:20 | Emergency (ER) | payer MEDICAID ==
[~2023-08-09] VITALS: Ht 162.6 cm; Wt 53.5 kg
[2023-08-09 01:40] VITALS: BP 150/102; PULSE 110; RESP 14; O2SAT 97
== END 2023-08-09 04:19 | disposition left against medical advice (07) ==
LOC: ER 01:20
DX: S90.111A Contusion of right great toe without damage to nail, initial encounter (principal); Z53.21 Procedure and treatment not carried out due to patient leaving prior to being seen by health care provider; W20.8XXA Other cause of strike by thrown, projected or falling object, initial encounter; Y93.89 Activity, other specified; Y92.89 Other specified places as the place of occurrence of the external cause; Y99.8 Other external cause status
CPT/HCPCS: 73630

== ENCOUNTER 2024-06-03 17:48 | Emergency (ER) | payer MEDICAID | END 2024-06-03 18:35 | disposition left against medical advice (07) | LOC: ER 17:48 | DX: Z76.0 Encounter for issue of repeat prescription (principal); Z53.21 Procedure and treatment not carried out due to patient leaving prior to being seen by health care provider ==

== ENCOUNTER 2025-01-21 23:51 | Emergency (ER) | payer MEDICAID ==
[~2025-01-21] VITALS: Ht 162.6 cm; Wt 55.0 kg
[2025-01-21 23:55] VITALS: BP 168/123; RESP 18; TEMP 98.2; O2SAT 93
[2025-01-21 23:58] VITALS: PULSE 107
--- NOTE | 2025-01-22 00:12 | ED.PDOC ---
HPI Comments 44-year-old female with a history of prior methamphetamine abuse and was told that she had some congestive heart failure some point now complains of some dull parasternal chest pain after she went to a festival today and drank some alcohol Chief Complaint: Chest Pain Time Seen by MD: 00:02 Primary Care Provider: SURAJ Allergies: Coded Allergies: NO KNOWN ALLERGIES (Unverified , 05/09/11) Home Meds Active Scripts Ibuprofen (Ibuprofen) 600 Mg Tab, 1 TAB PO Q6HP PRN, #30 TAB Prov:JOSE GRIMES PAC 12/08/22 Levofloxacin (Levaquin 750 mg) 750 Mg Tab, 1 TAB PO DAILY for 7 Days, #7 TAB Prov:JOSE GRIMES PAC 12/08/22 Pantoprazole Sodium Sesquihydr (Protonix) 40 Mg Tab, 40 MG PO DAILY for 10 Days, #10 TAB Prov:JESSICA NORTON MD 10/19/21 Prednisone (Prednisone) 20 Mg Tab, 20 MG PO DAILY for 10 Days, #20 MG Prov:JESSICA NORTON MD 10/19/21 Reported Medications Cephalexin (Keflex) 250 Mg Cap 05/24/11 Information Source: Patient Mode of Arrival: Ambulatory Severity: Moderate Timing: Days Duration: Since onset Past Medical History PAST MEDICAL HISTORY: CHF, CVA, HTN Surgical History: Denies all surgeries SCHOOL OFFICE MANAGER History: Unobtainable Family History Family History: Unobtainable Social History Smoker: Cigarettes, Greater Than 1 Pack/Day Alcohol: Heavy Drugs: Marijuana, Methamphetamine Lives In: Homeless Respiratory: reports: SOB with excertion Cardiovascular: reports: chest pain All Other Systems: Reviewed and Negative Physical Exam Exam Comments unkempt General Appearance: Mild Distress HEENT: Normal ENT Inspection, Pharynx Normal, TMs Normal Neck: Full Range of Motion, Non-Tender, Normal, Normal Inspection Respiratory: Chest Non-Tender, Lungs Clear, No Accessory Muscle Use, No Respiratory Distress, Normal Breath Sounds Cardiovascular: No Edema, No JVD, No Murmur, No Gallop, Normal Peripheral Pulses, Regular Rate/Rhythm Breast Exam: Deferred Gastrointestinal: No Organomegaly, Non Tender, No Pulsatile Mass, Normal Bowel Sounds, Soft Genitalia: Deferred Pelvic: Deferred Rectal: Deferred Extremities: No calf tenderness, Normal capillary refill, Normal inspection, Normal range of motion, Non-tender, No pedal edema Musculoskeletal : Apperance: Normal Neurologic: Alert, acoustical installer II-XII nml as Tested, No Motor Deficits, Normal Affect, Normal Mood, No Sensory Deficits Cerebellar Function: Normal Reflexes: Normal Skin: Dry, Normal Color, Warm Lymphatic: No Adenopathy Was a procedure done? Was a procedure done?: No CP Differential Dx Differential Diagnosis: A-fib, A-Flutter, Angina, MN, PAC's, V-Fib, V-Tach, Other X-Ray, Labs, Meds, VS Vital Signs Date Time Temp Pulse Resp B/P (MAP) Pulse Ox O2 Delivery O2 Flow Rate FiO2 01/21/25 23:58 107 01/21/25 23:55 98.2 115 18 168/123 93 98.2 Lab Test 01/22/25 00:01 Range/Units White Blood Count 7.6 4.4-10.8 10^3/uL Red Blood Count 3.96 L 4.0-5.20 10^6/uL Hemoglobin 13.8 12.2-16.2 g/dL Hematocrit 40.5 36.0-46.0 % Mean Corpuscular Volume 102.4 H 80.0-100.0 fL Mean Corpuscular Hemoglobin 34.8 H 28.0-32.0 pg Mean Corpuscular Hemoglobin Concent 34.0 32.0-36.0 g/dL Red Cell Distribution Width 14.3 11.8-14.3 % Platelet Count 266 140-450 10^3/uL Mean Platelet Volume 9.2 6.9-10.8 fL Neutrophils (%) (Auto) 68.9 37.0-80.0 % Lymphocytes (%) (Auto) 19.2 10.0-50.0 % Monocytes (%) (Auto) 7.3 0.0-12.0 % Eosinophils (%) (Auto) 3.7 0.0-7.0 % Basophils (%) (Auto) 0.9 0.0-2.0 % Neutrophils # (Auto) 5.3 1.6-8.6 10 ^3/uL Lymphocytes # (Auto) 1.5 0.4-5.4 10 ^3/uL Monocytes # (Auto) 0.6 0-1.3 10 ^3/uL Eosinophils # (Auto) 0.3 0-0.8 10 ^3/uL Basophils # (Auto) 0.1 0-0.2 10 ^3/uL Nucleated Red Blood Cells 0.1 % Prothrombin Time 11.4 9.3-11.8 sec Prothrombin Time INR 1.08 0.9-1.15 Activated Partial Thromboplast Time 29.8 24.5-34.5 SEC Sodium Level 140 136-145 mmol/L Potassium Level 3.4 L 3.5-5.1 mmol/L Chloride Level 106 98-107 mmol/L Carbon Dioxide Level 24 20-31 mmol/L Anion Gap 10 5-15 Blood Urea Nitrogen 11 9-23 mg/dL Creatinine 0.62 0.550-1.02 mg/dL Glomerular Filtration Rate Calc 112 >90 mL/min BUN/Creatinine Ratio 17.7 10.0-20.0 Serum Glucose 98 74-106 mg/dL Calcium Level 10.2 8.7-10.4 mg/dL Total Bilirubin 0.6 0.2-1.0 mg/dL Aspartate Amino Transferase (AST) 168 H 13-40 U/L Alanine Aminotransferase (ALT) 78 H 7-40 U/L Alkaline Phosphatase 140 H 46-116 U/L Troponin I High Sensitivity 9 </=34 ng/L B-Type Natriuretic Peptide 21.36 0-100 pg/mL Total Protein 7.9 5.7-8.2 g/dL Albumin 4.5 3.2-4.8 g/dL Plasma/Serum Blood Alcohol 181.7 H <10 mg/dL Time of 1ST Reevaluation: 00:11 Reevaluation 1ST: Unchanged Patient Education/Counseling: Diagnosis, Treatment Family Education/Counseling: No Family Present SEPSIS Sepsis Screen Date sepsis recognized/suspect: Jan 21, 2025 Time Sepsis recognized/suspect: 2356 Recent Procedure: No On Antibiotic Therapy: No Respiratory Rate >20: No Heart Rate >90: No Temp<36 C (96.8 F) or >38.3 C: No SBP <90 or MAP <65 mmHG: No New Acute Mental Status Change: No Is the patient on CPAP, BIPAP,: No Physician Orders Electrocardigram (01/22/25 00:05) Electrocardigram (01/22/25 01:05) Electrocardigram (01/22/25 03:05) Drug Screen (01/22/25 00:07) Vital Signs Date Time Temp Pulse Resp B/P (MAP) Pulse Ox O2 Delivery O2 Flow Rate FiO2 01/21/25 23:58 107 01/21/25 23:55 98.2 115 18 168/123 93 98.2 Laboratory Tests Test 01/22/25 00:01 White Blood Count 7.6 10^3/uL (4.4-10.8) Departure 1 Departure Time of Disposition: 02:28 Impression: Primary Impression: Methamphetamine use Additional Impressions: Alcohol use Chest pain Disposition: LEFT AWOL/ELOPED Condition: Guarded Discharged With: Self Critical Care Note Critical Care Time?: No Stability Stability form required: No Heart Score Heart Score: Heart Score Response (Comments) Value History Slightly Suspicious 0 EKG Normal 0 Age 45-64 1 Risk Factors 1 or 2 risk factors 1 Troponin Normal limit 0 Total 2 ANTONI LUCAS MD Jan 22, 2025 00:12
[2025-01-22 01:03] LABS: Hematocrit 40.5 % (36.0-46.0); Hemoglobin 13.8 g/dL (12.2-16.2); Mean Corpuscular Hemoglobin 34.8 pg (28.0-32.0); Mean Corpuscular Volume 102.4 fL (80.0-100.0); Nucleated Red Blood Cells % 0.1 %
[2025-01-22 01:11] LABS: Albumin 4.5 g/dL (3.2-4.8); Anion Gap 10 (5-15); BUN/Creatinine Ratio 17.7 (10.0-20.0); Bilirubin, Total 0.6 mg/dL (0.2-1.0); Blood Urea Nitrogen 11 mg/dL (9-23); Calcium 10.2 mg/dL (8.7-10.4); Carbon Dioxide 24 mmol/L (20-31); Chloride 106 mmol/L (98-107); Glucose 98 mg/dL (74-106); Sodium 140 mmol/L (136-145); Total Protein 7.9 g/dL (5.7-8.2)
[2025-01-22 01:19] LABS: Alanine Aminotransferase 78 U/L (7-40); Alkaline Phosphatase 140 U/L (46-116); INR 1.08 (0.9-1.15); Partial Thromboplastin Time 29.8 SEC (24.5-34.5); Potassium 3.4 mmol/L (3.5-5.1); Prothrombin Time 11.4 sec (9.3-11.8)
--- NOTE | 2025-01-22 07:53 | ECG ---
[facility] Test Date: 2025-01-21 Test Time: 23:58:41 Pat Name: WILLIE PÉREZ Department: Room: Gender: F Quantitative Manager: GET : 1980 Requested By: ANTONI LUCAS Order Number: [id number] Reading MD: Measurements Intervals [place] Rate: 107 P: 74 RI: 159 QRS: 32 QRSD: 96 T: 50 QT: 350 QTc: 467 Interpretive Statements Sinus tachycardia Consider right atrial enlargement Borderline ST depression, anterolateral leads Baseline wander in lead(s) V4 Please click the below link to view image of tracing.
== END 2025-01-22 02:04 | disposition left against medical advice (07) ==
LOC: ER 23:51
DX: F15.90 Other stimulant use, unspecified, uncomplicated (principal); I11.0 Hypertensive heart disease with heart failure; I50.9 Heart failure, unspecified; F17.210 Nicotine dependence, cigarettes, uncomplicated; Z79.52 Long term (current) use of systemic steroids; Z79.899 Other long term (current) drug therapy; Z86.73 Personal history of transient ischemic attack (TIA), and cerebral infarction without residual deficits
CPT/HCPCS: 36415; 80053; 80320; 83880; 84484; 85025; 85610; 85730; 93005

== ENCOUNTER 2025-01-30 16:44 | Emergency (ER) | payer MEDICAID ==
[~2025-01-30] VITALS: Ht 162.6 cm; Wt 52.3 kg
[2025-01-30 16:46] VITALS: BP 167/119; RESP 16; TEMP 98.6; O2SAT 100
--- NOTE | 2025-01-30 17:01 | ECG ---
[facility] Test Date: 2025-01-30 Test Time: 17:00:58 Pat Name: WILLIE PÉREZ Department: [facility] ED Patient ID: [facility]-[id number] Room: Gender: F Coal Digger: NERI : 1980 Requested By: MARCELO LEY Order Number: [id number] Reading MD: Iraj Perez Measurements Intervals [place] Rate: 108 P: 61 ND: 143 QRS: 51 QRSD: 95 T: 0 QT: 363 QTc: 487 Interpretive Statements Sinus tachycardia Minimal ST depression, diffuse leads Borderline prolonged QT interval Electronically Signed On 01-31-2025 15:46:39 PST by Iraj Perez Please click the below link to view image of tracing.
[2025-01-30 17:03] VITALS: PULSE 108
--- NOTE | 2025-01-30 17:03 | ED.PDOC ---
HPI Comments 44 y/o F, with PMHx of polysubstance abuse, HTN, HLD, and CHF presents to the ED for CC of chest pain. Patient states, she has been experiencing substernal non- radiating chest pain with associated shortness of breath [id number]. Patient describes chest pain to be "pressure" like in nature. She has been noncompliant with her medications because she states that she no longer wants to take them, however is presenting now because she is symptomatic. She does admit to active drug use. Patient denies dizziness, headache, palpitations, nausea, or vomiting. No other symptoms or modifying factors are present at this time. Chief Complaint: Chest Pain Time Seen by MD: 17:00 Primary Care Provider: SURAJ Reviewed Notes: Nurses Notes, Medications, Allergies Allergies: Coded Allergies: NO KNOWN ALLERGIES (Unverified , 05/09/11) Home Meds Active Scripts Ibuprofen (Ibuprofen) 600 Mg Tab, 1 TAB PO Q6HP PRN, #30 TAB Prov:JOSE GRIMES PAC 12/08/22 Levofloxacin (Levaquin 750 mg) 750 Mg Tab, 1 TAB PO DAILY for 7 Days, #7 TAB Prov:JOSE GRIMES PAC 12/08/22 Pantoprazole Sodium Sesquihydr (Protonix) 40 Mg Tab, 40 MG PO DAILY for 10 Days, #10 TAB Prov:JESSICA NORTON MD 10/19/21 Prednisone (Prednisone) 20 Mg Tab, 20 MG PO DAILY for 10 Days, #20 MG Prov:JESSICA NORTON MD 10/19/21 Reported Medications Cephalexin (Keflex) 250 Mg Cap 05/24/11 Information Source: Patient Mode of Arrival: Ambulatory Severity: Moderate Timing: Weeks Duration: Since onset Prehospital treatment: None Location: Substernal Radiation: No Radiation Quality: Pressure Onset: At Rest Cardiac Risk Factors: Smoker, Hyperlipidemia, HTN, Drugs PE Risk Factors: None History of: None Modifying Factors: Nothing Associated Signs and Symptoms: SOB Past Medical History PAST MEDICAL HISTORY: CHF, CVA, High Lipids, HTN Surgical History: Denies all surgeries AUDIO OPERATOR History: Unobtainable Family History Family History: Unobtainable Social History Smoker: Cigarettes, Greater Than 1 Pack/Day Alcohol: Heavy Drugs: Marijuana, Methamphetamine Lives In: Homeless Constitutional: denies: chills, diaphoresis, fatigue, fever, malaise, sweats, weakness, others EENTM: denies: blurred vision, double vision, ear bleeding, ear discharge, ear drainage, ear pain, ear ringing, eye pain, eye redness, hearing loss, mouth pain, mouth swelling, nasal discharge, nose bleeding, nose congestion, nose pain, photophobia, tearing, throat pain, throat swelling, voice changes, others Respiratory: reports: shortness of breath; denies: cough, hemoptysis, orthopnea, SOB at rest, SOB with excertion, stridor, wheezing, others Cardiovascular: reports: chest pain; denies: dizzy spells, diaphoresis, Dyspnea on exertion, edema, irregular heart beat, left arm pain, lightheadedness, palpitations, PND, syncope, others Gastrointestinal: denies: abdomen distended, abdominal pain, blood streaked bowels, constipated, diarrhea, dysphagia, difficulty swallowing, hematemesis, melena, nausea, poor appetite, poor fluid intake, rectal bleeding, rectal pain, vomiting, others Genitourinary: denies: abnormal vagina bleeding, burning, dyspareunia, dysuria, flank pain, frequency, hematuria, incontinence, pain, , vagina discharge, urgency, others Neurological: denies: dizziness, fainting, headache, left sided numbness, left sided weakness, numbness, paresthesia, pre-existing deficit, right sided numbness, right sided weakness, seizure, speech problems, tingling, tremors, weakness, others Musculoskeletal: denies: back pain, gout, joint pain, joint swelling, muscle pain, muscle stiffness, neck pain, others Integumetry: denies: bruises, change in color, change in hair/nails, dryness, laceration, lesions, lumps, rash, wounds, others Allergic/Immunocompromised: denies: Difficulty Healing, Frequent Infections, Hives, Itching, others Hematologic/Lymphatic: denies: anemia, blood clots, easy bleeding, easy bruising, swollen glands, others Endocrine: denies: excessive hunger, excessive sweating, excessive thirst, excessive urination, flushing, intolerance to cold, intolerance to heat, unexplained weight gain, unexplained weight loss, others Psychiatric: denies: anxiety, bipolar disorder, depression, hopeless, panic disorder, schizophrenia, sleepless, suicidal, others All Other Systems: Reviewed and Negative Physical Exam General Appearance: No Apparent Distress, Normal, Other (Disheveled appearing) HEENT: Normal ENT Inspection, Pharynx Normal Neck: Full Range of Motion, Non-Tender, Normal, Normal Inspection Respiratory: Chest Non-Tender, Lungs Clear, No Accessory Muscle Use, No Respiratory Distress, Normal Breath Sounds Cardiovascular: No Edema, No Murmur, No Gallop, Normal Peripheral Pulses, Tachycardia (otherwise normal) Breast Exam: Deferred Gastrointestinal: No Organomegaly, Non Tender, No Pulsatile Mass, Normal Bowel Sounds, Soft Genitalia: Deferred Pelvic: Deferred Rectal: Deferred Extremities: No calf tenderness, Normal capillary refill, Normal inspection, Normal range of motion, Non-tender, No pedal edema Musculoskeletal : Apperance: Normal Neurologic: Alert, slotter operator helper II-XII nml as Tested, No Motor Deficits, Normal Affect, Normal Mood, No Sensory Deficits Cerebellar Function: Normal Reflexes: Normal Skin: Dry, Normal Color, Warm Lymphatic: No Adenopathy EKG EKG : Pulse Rate (adult): 108 [place]: Normal Cardiac Rhythm: ST Block: None Hypertrophy: None ST: Normal Was a procedure done? Was a procedure done?: No CP Differential Dx Differential Diagnosis: Angina, Electrolyte Disorder, Heart Failure, Renal Failure, Sinus Tachycardia Differential Diagnosis: HTN Essential, HTN Accelerated Differential Diagnosis: Angina, Chest Wall Pain, Costochondritis, Esophageal reflux/spasm, Gastritis X-Ray, Labs, Meds, VS Vital Signs Date Time Temp Pulse Resp B/P (MAP) Pulse Ox O2 Delivery O2 Flow Rate FiO2 01/30/25 17:03 108 01/30/25 17:00 108 01/30/25 16:46 98.6 120 16 167/119 100 98.6 Lab Test 01/30/25 17:06 Range/Units White Blood Count 7.5 4.4-10.8 10^3/uL Red Blood Count 3.85 L 4.0-5.20 10^6/uL Hemoglobin 13.2 12.2-16.2 g/dL Hematocrit 39.5 36.0-46.0 % Mean Corpuscular Volume 102.6 H 80.0-100.0 fL Mean Corpuscular Hemoglobin 34.4 H 28.0-32.0 pg Mean Corpuscular Hemoglobin Concent 33.6 32.0-36.0 g/dL Red Cell Distribution Width 14.6 H 11.8-14.3 % Platelet Count 290 140-450 10^3/uL Mean Platelet Volume 8.3 6.9-10.8 fL Neutrophils (%) (Auto) 54.5 37.0-80.0 % Lymphocytes (%) (Auto) 32.2 10.0-50.0 % Monocytes (%) (Auto) 8.5 0.0-12.0 % Eosinophils (%) (Auto) 3.9 0.0-7.0 % Basophils (%) (Auto) 0.9 0.0-2.0 % Neutrophils # (Auto) 4.1 1.6-8.6 10 ^3/uL Lymphocytes # (Auto) 2.4 0.4-5.4 10 ^3/uL Monocytes # (Auto) 0.6 0-1.3 10 ^3/uL Eosinophils # (Auto) 0.3 0-0.8 10 ^3/uL Basophils # (Auto) 0.1 0-0.2 10 ^3/uL Nucleated Red Blood Cells 0.1 % Sodium Level 142 136-145 mmol/L Potassium Level 3.1 L 3.5-5.1 mmol/L Chloride Level 107 98-107 mmol/L Carbon Dioxide Level 24 20-31 mmol/L Anion Gap 11 5-15 Blood Urea Nitrogen 10 9-23 mg/dL Creatinine 0.58 0.550-1.02 mg/dL Glomerular Filtration Rate Calc 114 >90 mL/min BUN/Creatinine Ratio 17.2 10.0-20.0 Serum Glucose 96 74-106 mg/dL Calcium Level 9.0 8.7-10.4 mg/dL Troponin I High Sensitivity 6 </=34 ng/L X-Ray, Labs, Meds, VS Comment Patient with history of hypertension, hyperlipidemia, CHF, polysubstance abuse, who presents with chest pain and shortness of breaths in the setting of medication noncompliance. Patient is slightly tachycardic on arrival, likely secondary to active methamphetamine use. Chest x-ray to evaluate for evidence of pneumonia, pneumothorax, CHF EKG and troponin to evaluate for evidence of arrhythmia, ACS, AMI Lab work (CBC, BMP) to evaluate for evidence of severe anemia, electrolyte abnormality including hypokalemia, hyperkalemia, hypernatremia, hyponatremia, hyperglycemia, hypoglycemia, etc. Consider CT angio chest due to patient's presenting symptoms, but no CT angio chest obtained due to alternate cause of patient's presenting symptoms more likely after initial workup and management Re-evaluate Social determinant surveillance affecting care: Social determinants of health that will affect the patient's care: Poor health literacy (additional time provided an explanation) Drug abuse (provided counseling discussed risks of substance abuse) Poor access to outpatient care/followup (provided outpatient resources) Lack of transportation (arrange transportation as needed) Homelessness (provided resources) Time of 1ST Reevaluation: 17:30 Reevaluation 1ST: Unchanged Patient Education/Counseling: Diagnosis, Treatment Family Education/Counseling: No Family Present SEPSIS Sepsis Screen Date sepsis recognized/suspect: Jan 30, 2025 Time Sepsis recognized/suspect: 1647 Recent Procedure: No On Antibiotic Therapy: No Respiratory Rate >20: No Heart Rate >90: No Temp<36 C (96.8 F) or >38.3 C: No SBP <90 or MAP <65 mmHG: No New Acute Mental Status Change: No Is the patient on CPAP, BIPAP,: No Physician Orders Urinalysis (01/30/25 16:49) Troponin-I Hs (01/30/25 17:49) Troponin-I Hs (01/30/25 19:49) Electrocardigram (01/30/25 17:49) Electrocardigram (01/30/25 19:49) Vital Signs Date Time Temp Pulse Resp B/P (MAP) Pulse Ox O2 Delivery O2 Flow Rate FiO2 01/30/25 17:03 108 01/30/25 17:00 108 01/30/25 16:46 98.6 120 16 167/119 100 98.6 Laboratory Tests Test 01/30/25 17:06 White Blood Count 7.5 10^3/uL (4.4-10.8) Departure 1 Departure Time of Disposition: 19:28 (On reassessment, patient called multiple times he had no response. Labs and imaging unremarkable including EKG and troponin negative x2. Patient eloped after my assessment receiving repeat troponins and EKGs.) Impression: Primary Impression: Acute chest pain Additional Impressions: Acute dyspnea History of CHF (congestive heart failure) Noncompliance with medication regimen Chest pain Ruled Out: Acute myocardial infarction, Musculoskeletal chest pain Disposition: LEFT AWOL/ELOPED Condition: Fair Discharged With: Self Critical Care Note Critical Care Time?: No Stability Stability form required: No Heart Score Heart Score: Heart Score Response (Comments) Value History Slightly Suspicious 0 EKG N/A 0 Age 45-64 1 Risk Factors 1 or 2 risk factors 1 Troponin N/A 0 Total 2 I personally scribed for MARCELO LEY MD ([email or web address]) on 01/30/25 at 17:03. Electronically submitted by Almaz Carroll ([email or web address]). I personally scribed for MARCELO LEY MD ([email or web address]) on 01/30/25 at 17:12. Electronically submitted by Almaz Carroll ([email or web address]). I personally scribed for MARCELO LEY MD ([email or web address]) on 01/30/25 at 17:14. Electronically submitted by Almaz Carroll ([email or web address]). MARCELO LEY MD Jan 30, 2025 17:03
[2025-01-30 17:25] LABS: Hematocrit 39.5 % (36.0-46.0); Hemoglobin 13.2 g/dL (12.2-16.2); Mean Corpuscular Hemoglobin 34.4 pg (28.0-32.0); Mean Corpuscular Volume 102.6 fL (80.0-100.0); Nucleated Red Blood Cells % 0.1 %
[2025-01-30 17:32] LABS: Chloride 107 mmol/L (98-107); Sodium 142 mmol/L (136-145)
[2025-01-30 17:33] LABS: Anion Gap 11 (5-15); Calcium 9.0 mg/dL (8.7-10.4); Carbon Dioxide 24 mmol/L (20-31); Potassium 3.1 mmol/L (3.5-5.1)
[2025-01-30 17:38] LABS: BUN/Creatinine Ratio 17.2 (10.0-20.0); Blood Urea Nitrogen 10 mg/dL (9-23); Glucose 96 mg/dL (74-106)
== END 2025-01-30 19:23 | disposition left against medical advice (07) ==
LOC: ER 16:44
DX: R07.89 Other chest pain (principal); I11.0 Hypertensive heart disease with heart failure; I50.9 Heart failure, unspecified; R06.00 Dyspnea, unspecified; E78.5 Hyperlipidemia, unspecified; F17.210 Nicotine dependence, cigarettes, uncomplicated; F10.90 Alcohol use, unspecified, uncomplicated; F12.90 Cannabis use, unspecified, uncomplicated; F19.90 Other psychoactive substance use, unspecified, uncomplicated; Z79.899 Other long term (current) drug therapy; Z91.148 Patient's other noncompliance with medication regimen for other reason; Z86.73 Personal history of transient ischemic attack (TIA), and cerebral infarction without residual deficits; Z79.52 Long term (current) use of systemic steroids; Z59.00 Homelessness unspecified
CPT/HCPCS: 36415; 80048; 84484; 85025; 93005

== ENCOUNTER 2025-02-08 02:31 | Emergency (ER) | payer MEDICAID ==
[~2025-02-08] VITALS: Ht 165.1 cm; Wt 54.5 kg
[2025-02-08] MEDS ORDERED: LOSA-534 PO (04:03)
[2025-02-08] MEDS ORDERED: AUG875T PO (04:04)
--- NOTE | 2025-02-08 04:08 | ED.PDOC ---
History of Present Illness(SKN HPI Comments PT CAME TO THE ER WITH PRIMARY CC OF MED REFILL, PT STATES THAT SHE RAN OUT OF HER BLOOD PRESSURE AND SEIZURE MEDICATION, PT ALSO REPORTS ANIMAL BITE X3 DAYS ON THE RIGHT HAND BETWEEN THE THUMB AND 1ST DIGIT. PT IS CURRENTLY A&OX4 RR EVEN AND REGULAR, BLOOD PRESSURE IS ELEVATED AT 155/113, PT DENIES ALL OTHER SYMPTOMS. DENIES SOB. CP, [place]. NUMBNESS OR WEAKNESS Chief Complaint: Animal Bite Time Seen by MD: 02:42 Primary Care Provider: SURAJ History of Present Illness: Nurses Notes, Medications, Allergies Allergies: Coded Allergies: NO KNOWN ALLERGIES (Unverified , 05/09/11) Home Meds Active Scripts Ibuprofen (Ibuprofen) 600 Mg Tab, 1 TAB PO Q6HP PRN, #30 TAB Prov:JOSE GRIMES PAC 12/08/22 Levofloxacin (Levaquin 750 mg) 750 Mg Tab, 1 TAB PO DAILY for 7 Days, #7 TAB Prov:JOSE GRIMES PAC 12/08/22 Pantoprazole Sodium Sesquihydr (Protonix) 40 Mg Tab, 40 MG PO DAILY for 10 Days, #10 TAB Prov:JESSICA NORTON MD 10/19/21 Prednisone (Prednisone) 20 Mg Tab, 20 MG PO DAILY for 10 Days, #20 MG Prov:JESSICA NORTON MD 10/19/21 Reported Medications Cephalexin (Keflex) 250 Mg Cap 05/24/11 Information Source: Patient Mode of Arrival: Ambulatory Past Medical History PAST MEDICAL HISTORY: CHF, CVA, High Lipids, HTN Surgical History: Denies all surgeries TRADER History: Unobtainable Family History Family History: Unobtainable Social History Smoker: Cigarettes, Greater Than 1 Pack/Day Alcohol: Heavy Drugs: Marijuana, Methamphetamine Lives In: Homeless All Other Systems: Reviewed and Negative (see hpi) Physical Exam General Appearance: No Apparent Distress, Normal HEENT: Pharynx Normal Neck: Full Range of Motion, Non-Tender Respiratory: Lungs Clear, No Respiratory Distress, Normal Breath Sounds Cardiovascular: No Edema, No JVD, No Murmur, No Gallop, Normal Peripheral Pulses, Regular Rate/Rhythm Breast Exam: Deferred Gastrointestinal: No Organomegaly, Non Tender, No Pulsatile Mass, Normal Bowel Sounds, Soft Genitalia: Deferred Pelvic: Deferred Rectal: Deferred Extremities: Normal capillary refill, Normal range of motion, No pedal edema Musculoskeletal : Apperance: Normal Neurologic: Alert, No Motor Deficits, Normal Affect, Normal Mood, No Sensory Deficits Cerebellar Function: Normal Reflexes: NOT DONE Skin: Dry, Normal Color, Warm, Wounds (RIGHT HAND DORSUM ASPECT HEALED OVER PUNCTURE WOUNDS X3 NO DRAINAGE TRACE ERYTHEMA TRACE EDEMA STRENGTH SENSORY MOTION INTACT) Lymphatic: No Adenopathy Was a procedure done? Was a procedure done?: No Differential Diagnosis (INTG) Differential Diagnosis: Cellulitis, Hematoma, Insect Envenomation, Laceration, Puncture Wound Differential Diagnosis: Abscess X-Ray, Labs, Meds, VS Vital Signs Date Time Temp Pulse Resp B/P (MAP) Pulse Ox O2 Delivery O2 Flow Rate FiO2 02/08/25 02:32 97.9 105 19 155/113 99 97.9 X-Ray, Labs, Meds, VS Comment Script prophylactic trial of antibiotics. Script trial of losartan 50 mg once daily patient states does not remember the blood pressure medication that she is on but it starts with an L and she notes losartan sounds familiar history checked it no information found on what patient takes for her high blood pressure. Is noncompliant with her medication regimen also poor historian. 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 ER return precautions for any new onset of chest pain shortness of breath difficulty breathing numbness weakness or any concerning symptoms. Understanding and agrees with discharge plan of care. Time of 1ST Reevaluation: 02:42 Reevaluation 1ST: Unchanged Time of 2ND Reevaluation: 04:06 Reevaluation 2ND: Improved Patient Education/Counseling: Diagnosis, Treatment, Need For Follow Up Family Education/Counseling: No Family Present SEPSIS Sepsis Screen Date sepsis recognized/suspect: Feb 08, 2025 Time Sepsis recognized/suspect: 0240 Recent Procedure: No On Antibiotic Therapy: No Respiratory Rate >20: No Heart Rate >90: Yes Temp<36 C (96.8 F) or >38.3 C: No SBP <90 or MAP <65 mmHG: No New Acute Mental Status Change: No Is the patient on CPAP, BIPAP,: No Vital Signs Date Time Temp Pulse Resp B/P (MAP) Pulse Ox O2 Delivery O2 Flow Rate FiO2 02/08/25 02:32 97.9 105 19 155/113 99 97.9 Departure 1 Departure Time of Disposition: 04:02 Impression: Primary Impression: Hypertension Qualified Codes: I10 - Essential (primary) hypertension Additional Impression: Dog bite of dorsum of hand Disposition: 01 HOME / SELF CARE / HOMELESS Condition: Stable e-Prescriptions Amoxicillin & Pot Clavulanate (AUGMENTIN TABLET) 875 Mg Tb 875 MG PO BID for 7 Days, #14 TAB Prov: MARI ELIZONDO 02/08/25 Losartan Potassium (Losartan Potassium) 50 Mg Tab 1 TAB PO DAILY for 30 Days, #30 TAB Prov: MARI ELIZONDO 02/08/25 Discharged With: Self Critical Care Note Critical Care Time?: No Stability Stability form required: No MARI ELIZONDO Feb 08, 2025 04:08
[2025-02-08 04:15] VITALS: BP 168/114; PULSE 102; RESP 16; TEMP 98; O2SAT 93
[2025-02-08] MEDS ORDERED: [UNRECOGNIZED DRUG - CODE] XX (04:20)
== END 2025-02-08 04:22 | disposition home or self-care (01) ==
LOC: ER 02:31
DX: S60.571A Other superficial bite of hand of right hand, initial encounter (principal); I11.0 Hypertensive heart disease with heart failure; I50.9 Heart failure, unspecified; E78.5 Hyperlipidemia, unspecified; F17.210 Nicotine dependence, cigarettes, uncomplicated; Z76.0 Encounter for issue of repeat prescription; Z79.899 Other long term (current) drug therapy; Z86.73 Personal history of transient ischemic attack (TIA), and cerebral infarction without residual deficits; W54.0XXA Bitten by dog, initial encounter; Y93.89 Activity, other specified; Y92.89 Other specified places as the place of occurrence of the external cause; Y99.8 Other external cause status